=== PATIENT | female | born 1990 | race Caucasian/White ===

== ENCOUNTER 2018-08-28 10:30 | Outpatient (CLI) | payer MEDICAID ==
[~2018-08-28] VITALS: Ht 160 cm; Wt 97.3 kg
[2018-08-28 10:56] VITALS: BP 118/64
[2018-08-28 11:01] LABS: MICROSCOPIC NOT IND
[2018-08-28 11:46] LABS: BASOPHILS # (AUTO) 0.04 x10^3/uL (0-0.1); BASOPHILS % (AUTO) 0 % (0-1); EOSINOPHILS # (AUTO) 0.04 x10^3/uL (0-0.4); EOSINOPHILS % (AUTO) 0 % (1-7); LYMPHOCYTES % (AUTO) 11 % (22-44); MD NO; MEAN CORPUSCULAR HEMOGLOBIN 30.7 pg (27.0-34.8); MEAN CORPUSCULAR HGB CONC 33.3 g/dL (32.4-35.8); MEAN CORPUSCULAR VOLUME 92.4 fL (80-100); MEAN PLATELET VOLUME 7.9 fL (7.4-10.4); MONOCYTES # (AUTO) 0.36 x10^3/uL (0.2-0.8); MONOCYTES % (AUTO) 3 % (2-9); NEUTROPHILS # (AUTO) 9.39 x10^3/uL (1.8-6.8); NEUTROPHILS % (AUTO) 85 % (42-75); PLATELET COUNT 228 x10^3/uL (130-400); RED BLOOD COUNT 4.57 x10^6/uL (3.82-5.3); RED CELL DISTRIBUTION WIDTH 14.9 % (9.6-15.2)
[2018-08-28 11:57] LABS: ALBUMIN 2.7 g/dL (3.4-5.0); ANION GAP 8 mmol/L (5-15); CALCIUM 8.7 mg/dL (8.5-10.1); CHLORIDE 109 mmol/L (98-107)
[2018-08-28 12:00] LABS: ALANINE AMINOTRANSFERASE 23 U/L (12-78); ALKALINE PHOSPHATASE 89 U/L (45-117); BILIRUBIN, DIRECT 0.1 mg/dL (0.1-0.2); BILIRUBIN,TOTAL 0.3 mg/dL (0.2-1.0); CREATININE 0.59 mg/dL (0.55-1.02); TOTAL PROTEIN 6.5 g/dL (6.4-8.2)
[2018-08-28 12:04] LABS: AMPHETAMINE SCREEN, URINE Negative (Negative); BENZODIAZEPINE SCREEN, URINE Negative (Negative); CANNABINOID SCREEN, URINE Negative (Negative); COCAINE SCREEN, URINE Negative (Negative); METHADONE SCREEN, URINE Negative (Negative); OPIATE SCREEN, URINE Negative (Negative)
[2018-08-28 12:07] LABS: BARBITURATE SCREEN, URINE Negative (Negative)
[2018-08-28 12:11] LABS: PROTEIN/CREATININE RATIO,URINE < 198 (0-200); TOTAL PROTEIN,URINE RANDOM < 5 mg/dL (0-12)
== END 2018-08-28 13:22 | disposition home or self-care (01) ==
LOC: LDOP 10:30
PROVIDERS: ATTEND Obstetrics & Gynecology
DX: O26.893 Other specified pregnancy related conditions, third trimester (principal); R03.0 Elevated blood-pressure reading, without diagnosis of hypertension; Z3A.36 36 weeks gestation of pregnancy
CPT/HCPCS: 36415; 59025; 80053; 80307; 81003; 82248; 82570; 84156; 84550; 85025; 99211; G0463

== ENCOUNTER 2018-09-12 22:52 | Inpatient (IN) | payer MEDICAID ==
[~2018-09-12] VITALS: Ht 160 cm; Wt 96.8 kg
[2018-09-12] MEDS ORDERED: OXYTOCIN 30U/ 0.9% NaCL 500ML 500 ML IV PRN (22:54)
[2018-09-12] MEDS ORDERED: LACTATED RINGERS 1,000 ML IV SCH (22:54)
[2018-09-12] MEDS ORDERED: D5%-LACTATED RINGERS 1,000 ML IV SCH (22:54)
[2018-09-12] MEDS ORDERED: OXYTOCIN 30U/ 0.9% NaCL 500ML 500 ML IV ONE (22:54)
[2018-09-12] MEDS ORDERED: ONDANSETRON 2MG/ML, 2ML IVPush PRN (23:00)
[2018-09-12] MEDS ORDERED: FENTANYL PF 100 MCG/2ML IVPush PRN (23:00)
[2018-09-12] MEDS ORDERED: FENTANYL PF 100 MCG/2ML IV PRN (23:00)
[2018-09-12] MEDS ORDERED: SODIUM CITRATE/CITRIC ACID 15 ML UDC PO PRN (23:00)
[2018-09-12] MEDS ORDERED: MISOPROSTOL 25 MCG TABLET VG PRN (23:00)
[2018-09-12] MEDS ORDERED: METOCLOPRAMIDE 5 MG/ML, 2ML IVPush PRN (23:00)
[2018-09-12] MEDS ORDERED: NEWBORN KIT ONE (23:01)
[2018-09-12] MEDS ORDERED: LIDOCAINE 1%, 20ML ONE (23:01)
[2018-09-12] MEDS ORDERED: OXYTOCIN 30U/ 0.9% NaCL 500ML 500 ML ONE (23:02)
[2018-09-12] MEDS ORDERED: MISOPROSTOL 25 MCG TABLET ONE (23:02)
[2018-09-12] MEDS ORDERED: MISOPROSTOL 200 MCG TABLET ONE (23:02)
[2018-09-12 23:27] LABS: BASOPHILS # (AUTO) 0.03 x10^3/uL (0-0.1); BASOPHILS % (AUTO) 0 % (0-1); EOSINOPHILS # (AUTO) 0.04 x10^3/uL (0-0.4); EOSINOPHILS % (AUTO) 0 % (1-7); LYMPHOCYTES # (AUTO) 1.91 x10^3/uL (1-3.4); LYMPHOCYTES % (AUTO) 13 % (22-44); MD NO; MEAN CORPUSCULAR HEMOGLOBIN 31.6 pg (27.0-34.8); MEAN PLATELET VOLUME 8.3 fL (7.4-10.4); MONOCYTES # (AUTO) 0.69 x10^3/uL (0.2-0.8); MONOCYTES % (AUTO) 5 % (2-9); NEUTROPHILS # (AUTO) 12.47 x10^3/uL (1.8-6.8); NEUTROPHILS % (AUTO) 82 % (42-75); PLATELET COUNT 260 x10^3/uL (130-400); RED BLOOD COUNT 4.78 x10^6/uL (3.82-5.3); RED CELL DISTRIBUTION WIDTH 14.5 % (9.6-15.2)
[2018-09-12 23:39] LABS: AMPHETAMINE SCREEN, URINE Negative (Negative); BARBITURATE SCREEN, URINE Negative (Negative); BENZODIAZEPINE SCREEN, URINE Negative (Negative); CANNABINOID SCREEN, URINE Negative (Negative); COCAINE SCREEN, URINE Negative (Negative); METHADONE SCREEN, URINE Negative (Negative); OPIATE SCREEN, URINE Negative (Negative)
[2018-09-12 23:51] VITALS: BP 127/72
[2018-09-13] MEDS ORDERED: FENTANYL/BUPIV./NS/PF 250 ML EPIDCONT SCH (00:27)
[2018-09-13] MEDS: LACTATED RINGERS 1,000 ML IV SCH ×2 (00:27→08:27)
[2018-09-13] MEDS: LACTATED RINGERS 1,000 ML IVBOLUS PRN ×2 (03:44→03:59)
[2018-09-13] MEDS ORDERED: EPHEDRINE 50 MG/ML, 1ML ONE (03:53)
[2018-09-13] MEDS ORDERED: FENTANYL PF 100 MCG/2ML ONE ×2 (04:02→04:41)
[2018-09-13] MEDS ORDERED: BUPIVACAINE 0.25% ONE ×2 (04:41→12:44)
[2018-09-13] MEDS: EPHEDRINE 50 MG/ML, 1ML IVPush PRN ×2 (05:58→06:23)
[2018-09-13] MEDS ORDERED: METHYLERGONOVINE 0.2 MG/ML IM PRN (13:30)
[2018-09-13] MEDS ORDERED: MISOPROSTOL 200 MCG TABLET PR PRN (13:30)
[2018-09-13] MEDS ORDERED: CARBOPROST TROMETHAMINE 250 MCG/ML, 1ML IM PRN (13:30)
[2018-09-13] MEDS ORDERED: OXYcodone/APAP 5/325MG TABLET PO PRN (13:30)
[2018-09-13] MEDS ORDERED: DOCUSATE 100 MG CAPSULE PO PRN (13:30)
[2018-09-13] MEDS ORDERED: OXYTOCIN 30U/ 0.9% NaCL 500ML 500 ML ONE (13:31)
[2018-09-13] MEDS: OXYTOCIN 30U/ 0.9% NaCL 500ML 500 ML IV SCH ×2 (13:33→19:46)
[2018-09-13] MEDS ORDERED: IBUPROFEN 600 MG TABLET ONE (15:11)
[2018-09-13] MEDS ORDERED: OXYcodone/APAP 5/325MG TABLET ONE (15:11)
[2018-09-13] MEDS: IBUPROFEN 600 MG TABLET PO PRN ×2 (15:13→21:30)
[2018-09-13] MEDS: OXYcodone/APAP 5/325MG TABLET PO PRN ×2 (15:13→20:30)
[2018-09-13 15:45] VITALS: BP 106/64
[2018-09-13 19:30] VITALS: BP 105/64
[2018-09-13 21:21] LABS: MEAN CORPUSCULAR HEMOGLOBIN 31.6 pg (27.0-34.8); MEAN CORPUSCULAR HGB CONC 34.2 g/dL (32.4-35.8); MEAN CORPUSCULAR VOLUME 92.4 fL (80-100); MEAN PLATELET VOLUME 7.9 fL (7.4-10.4); PLATELET COUNT 188 x10^3/uL (130-400); RED BLOOD COUNT 3.67 x10^6/uL (3.82-5.3); RED CELL DISTRIBUTION WIDTH 14.6 % (9.6-15.2)
[2018-09-13 22:00] LABS: BASOPHILS # (AUTO) 0.02 x10^3/uL (0-0.1); BASOPHILS % (AUTO) 0 % (0-1); EOSINOPHILS # (AUTO) 0.06 x10^3/uL (0-0.4); EOSINOPHILS % (AUTO) 1 % (1-7); LYMPHOCYTES # (AUTO) 1.64 x10^3/uL (1-3.4); LYMPHOCYTES % (AUTO) 13 % (22-44); MD SCAN; MONOCYTES # (AUTO) 0.24 x10^3/uL (0.2-0.8); MONOCYTES % (AUTO) 2 % (2-9); NEUTROPHILS % (AUTO) 84 % (42-75)
[2018-09-14] MEDS: OXYcodone/APAP 5/325MG TABLET PO PRN ×3 (01:25→11:33)
[2018-09-14 01:30] VITALS: BP 95/60
[2018-09-14] MEDS: IBUPROFEN 600 MG TABLET PO PRN ×2 (05:54→11:34)
[2018-09-14 06:13] VITALS: BP 104/62
[2018-09-14 08:31] VITALS: BP 111/72
[2018-09-14] MEDS ORDERED: PRENATAL VIT/IRON/FA 1 EACH TABLET PO SCH (09:00)
[2018-09-14] MEDS ORDERED: IBUP-1222 PO (12:20)
== END 2018-09-14 14:35 | disposition home or self-care (01) | DRG 807 ==
LOC: EDBD → LDIP 22:52 → 2NW 09-13 15:27
PROVIDERS: ADMIT Obstetrics & Gynecology; ATTEND Obstetrics & Gynecology
PROC: 10E0XZZ Delivery of Products of Conception, External Approach (ICD-10-PCS; principal; 2018-09-13)
PROC: 0UQMXZZ Repair Vulva, External Approach (ICD-10-PCS; 2018-09-13)
PROC: 3E0R3BZ Introduction of Anesthetic Agent into Spinal Canal, Percutaneous Approach (ICD-10-PCS; 2018-09-13)
PROC: 00HU33Z Insertion of Infusion Device into Spinal Canal, Percutaneous Approach (ICD-10-PCS; 2018-09-13)
PROC: 3E0234Z Introduction of Serum, Toxoid and Vaccine into Muscle, Percutaneous Approach (ICD-10-PCS; 2018-09-13)
DX: O99.62 Diseases of the digestive system complicating childbirth (principal); Z37.0 Single live birth; O70.0 First degree perineal laceration during delivery; K21.9 Gastro-esophageal reflux disease without esophagitis; Z3A.39 39 weeks gestation of pregnancy
CPT/HCPCS: 36415; J2790; J7121; 80307; 82803; 85025; 85461; 86850; 86900; G0378; J3010; J2590; J7120